=== PATIENT | male | born 2000 | race Caucasian/White ===

== ENCOUNTER 2020-06-15 15:56 | Emergency (ER) | payer OTHER, SELFPAY ==
[2020-06-15 15:57] VITALS: BP 126/75; PULSE 91; RESP 18; TEMP 36.7; O2SAT 98; BMI 26.4
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
[2020-06-15] MEDS: Diphth,Pertuss(Acell),Tet Vac 0.5 ML Vial IM (18:10)
[2020-06-15] MEDS: BACITRACIN 15 GM Tube 1 APPLIC TOPICAL (18:11)
== END 2020-06-15 18:26 | disposition home or self-care (01) ==
PROVIDERS: Emergency Provider Emergency Medicine
DX: T23.271A Burn of second degree of right wrist, initial encounter (principal); F17.200 Nicotine dependence, unspecified, uncomplicated
CPT/HCPCS: 90715; 96372; 99282